=== PATIENT | female | born 1970 | race Caucasian/White ===

== ENCOUNTER 2020-12-19 09:32 | Day surgery (SDC) | payer OTHER, SELFPAY ==
[2020-12-18 17:29] VITALS: BMI 38.0
[2020-12-19] VITALS (7 sets, daily range): BP systolic 122–155; BP diastolic 80–106; PULSE 83–98; RESP 18–22; TEMP 37–37.3; O2SAT 97–98
[2020-12-19] MEDS: scopolamine 1.5 Patch 1 PATCH TRANSDERMA (10:12)
--- NOTE | 2020-12-19 10:24 | W.PM.OPSUD ---
Surgery/Procedure H&P Update DATE OF PROCEDURE: December 19, 2020 DATE H&P PERFORMED: 11/27/20 H&P UPDATE INFORMATION: I have reviewed H&P completed within last 30 days, I have examined patient prior to procedure and No changes to prior documentation PREOP DIAGNOSIS: Labral tear left shoulder PLANNED PROCEDURE: Operation Date: 12/19/20 11:20 Proposed Procedures p Shoulder Arthroscopy poss labral repair other indiciated procedures [id number] [id number](Left) - Jose Daniel Chavarria MD
[2020-12-19] MEDS: sodium chloride 0.9% 1,000 ML 30 ML IV (10:45)
--- NOTE | 2020-12-19 11:08 | ANES.PREANE2 ---
Pre-Anesthetic Assessment Pre-Anesthetic Assessment: Height/Weight: Height 1.64 m Weight 102.058 kg Temp Pulse Resp BP Pulse Ox 98.7 F 88 18 149/94 98 12/19/20 09:53 12/19/20 09:53 12/19/20 09:53 12/19/20 09:53 12/19/20 09:53 Preop Diagnosis: Labral tear left shoulder Proposed Procedure: Operation Date: 12/19/20 11:20 Proposed Procedures p Shoulder Arthroscopy poss labral repair other indiciated procedures [id number] [id number](Left) - Jose Daniel Chavarria MD Was Beta Jalen taken within 24 hours: N/A Was Clonidine taken within 24 hours: N/A Last intake: Intake Last Liquid Date 12/18/20 Last Liquid Time 20:00 Last Solid Date 12/18/20 Last Solid Time 18:00 Social: Social History: No alcohol and No tobacco Exam: Pre-Anes Outpt Exam: alert, oriented x 3, clear to auscultation bilaterally and regular rate & rhythm Airway: Submandibular: WNL Cervical ROM: WNL MP: 2 Dentition: Full Metabolic: Metabolic: Morbid obesity Musc/skel: Musc/skel: OA/DJD Neuropsych: Neuropsych: Anxiety Anesthetic Plan: ASA status: 3 Anesthesia: Regional (specify below) (Left interscalene nerve blk) Risk of > 500 ml blood loss (7ml/kg in children): No PFSH Anesthesia PFSH: Social History Alcohol intake: current Alcohol intake frequency: holidays/special occasions only Data Anesthesia Cardiac Studies: No Data to Display
--- NOTE | 2020-12-19 11:09 | ANES.PROC ---
Anesthesia Procedures Procedure/Date: 12/19/20 Nerve Block ^: Nerve Block 1: Main Anesthesia: general anesthesia Time Out Performed: Yes Consent: requested by attending/covering physician, from patient, risks and benefits reviewed and patient agrees to proceed Nerve block location: interscalene (left) Anesthesia monitors applied: pulse oximetry, EKG, BP cuff and oxygen Nerve block position: supine Anesthetic Used: ropivicaine 0.5% Amount of anesthesia used (mL): 30 Ultrasound used to: recognize landmarks Nerve Stimulator Used?: No Interscalene/Femoral BLK: 2 stimuplex 22 g needle used for position and inplane approach and visualize local anesthetic spread Injection: neg aspiration of heme Patient Tolerated Procedure: well Complications: none
[2020-12-19] MEDS: EPINEPHrine 1 mg/mL INJ 2 MG XX (11:22)
--- NOTE | 2020-12-19 11:43 | P.OP_ITS ---
Operative Report Date of procedure: December 19, 2020 Pre-op Diagnosis: Labral tear left shoulder Post-op Diagnosis: Anterior and posterior labral tear left shoulder Post-op Findings: The patient had complex tearing involving the anterior and posterior labrum. Previously the biceps anchor. There was minimal articular sided tearing of the rotator cuff just posterior to the biceps and on the bursal aspect. No specific impingement was identified Procedure Done: Extensive arthroscopic debridement left shoulder Pathology: none sent Surgeon: Jose Daniel Chavarria Anesthesia: General and Nerve Block (Interscalene block) Estimated blood loss (mL): 5 Complications: None Findings: Patient had complex tearing of the anterior labrum from approximately the 1 to 3 o'clock position however stable labral attachment was identified. She had complex tearing about the central posterior labrum. There is a partial- thickness tear in the leading edge of the supraspinatus tendon on articular aspect just posterior to the rotator cuff. There was bursal irregularity and fraying but no significant tearing. She had a slight anterior curve to her acromion Condition: stable Disposition: PACU Procedure: Patient was taken to the operating room after she was given an interscalene block. She was given 2 g of Ancef. She was given a general anesthesia and positioned in the lateral position with her left arm in 15 pounds of traction. A timeout was performed. The shoulder was entered through a posterior portal by 2 cm inferior medial to the posterior corner of the acromion. The scope cannula and trocar driven into the glenohumeral joint. An anterior working portal was made with a scalpel blade. The diagnostic portion arthroscopy was performed. Area of central labral tearing was identified anteriorly this was lightly debrided back to the incisor shaver and [employer]hew Werewolf probe creating a stable margin. The labrum was carefully probed and no significant tearing was identified. Central areas of tearing in the posterior labrum were debrided with the [employer] Werewolf probe. A small chondral flap over the central humeral head was debrided back with the [employer]hew Werewolf probe no exposed subchondral bone was identified. The scope was then moved to the subacromial space as was the anterior inflow cannula. A lateral working portal was opened up with a scalpel blade. Utilized incisor shaver and [employer]hew Werewolf probe bursal tissue was removed. The bursal surface the rotator cuff was carefully inspected. There was fraying on the bursal cuff but really no substantial tearing to benefit from a more than light debridement. The bursal cuff was and lightly abraded back with incisor shaver and [employer]hew Werewolf probe revealing stable margins. Bursal tissue was removed revealing a fairly flat acromion it was not thought to benefit from debridement. The shoulder was irrigated with saline. Portals were closed with 3-0 Prolene. Sterile dressings were applied. The patient was extubated and taken to recovery room in stable condition.
--- NOTE | 2020-12-19 12:03 | P.PCN_ITS ---
PACU note PACU note: VSS, Good respiratory effort, report to MEASUREMENT ADVISOR Post-Anesthesia Exam: awake
--- NOTE | 2020-12-19 12:03 | PM.PACU ---
PACU note PACU note: VSS, Good respiratory effort, report to MAJOR CASE DETECTIVE Post-Anesthesia Exam: awake
--- NOTE | 2020-12-19 12:41 | SUR.PHASEI ---
1223 PT TO OPS AWAKE ALERT ASKING FOR COFFEE, PT C/O OF SIGNIFICANT HEADACHE, PT STATES SHE IS A BIG COFFEE DRINKER AND THAT WILL HELP HER DOLAN AND HELP TO CLEAR SECRETIONS PT SITTING UP RIGHT IN BED SLING IN PLACE PT PLACED ON 3LNC FOR COMFORT SHE FEELS SHORT OF BREATH (A LITTLE BIT) AFTER INTERSCALENE BLOCK PLACED PREOPERATIVELY. PT HAS EVEN AND UNLABORED RESP SATS GOOD, NC FOR PT COMFORT. PT TO OPS WITH HANDOFF AT BEDSIDE.
--- NOTE | 2020-12-19 13:58 | ANE.PACU2 ---
Inpatient post-anesthesia follow up: Airway intact: Yes Vital signs: Temperature 98.6 F Pulse Rate 86 Respiratory Rate 18 Blood Pressure 155/80 Pulse Oximetry 98 Oxygen Delivery Me thod Room Air Oxygen Flow Rate 3 Fraction of Inspir ed Oxygen Hydration adequate: Yes Nausea and vomiting: No Pain level: 2 Mental status: Baseline
== END 2020-12-19 13:18 | disposition home or self-care (01) ==
PROVIDERS: PCP Student in an Organized Health Care Education/Training Program; Visit Provider Orthopaedic Surgery
PROC: (CPT 29805; principal; 2020-12-19 11:10)
DX: S43.402A Unspecified sprain of left shoulder joint, initial encounter (principal); X58.XXXA Exposure to other specified factors, initial encounter; E66.01 Morbid (severe) obesity due to excess calories; Z68.38 Body mass index [BMI] 38.0-38.9, adult; M19.90 Unspecified osteoarthritis, unspecified site; F41.9 Anxiety disorder, unspecified
CPT/HCPCS: 29823; 64415; 76942; 96365; J0171; J0690; J1100; J2405; J2704; J2710; J2795; J3010; J3490; J7030